=== PATIENT | male | born 1990 | race Two or more races ===

== ENCOUNTER 2016-09-30 17:25 | Emergency (ER) | payer SELFPAY ==
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
[2016-09-30 17:55] VITALS: BP 129/76
== END 2016-09-30 17:55 ==
LOC: ER 17:25
DX: S20.312A Abrasion of left front wall of thorax, initial encounter (principal); F10.120 Alcohol abuse with intoxication, uncomplicated; X08.8XXA Exposure to other specified smoke, fire and flames, initial encounter; Y93.89 Activity, other specified
CPT/HCPCS: 99284

== ENCOUNTER 2017-04-18 06:07 | Emergency (ER) | payer SELFPAY ==
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
[2017-04-18 07:22] LABS: ABSOLUTE EOSINOPHILS # (AUTO) 0.1 10^3/uL (0.0-0.6); ABSOLUTE LYMPHOCYTES (AUTO) 2.1 10^3/uL (0.5-4.7); ABSOLUTE MONOCYTES (AUTO) 1.1 10^3/uL (0.1-1.4); ABSOLUTE NEUT (AUTO) 10.1 10^3/uL (1.7-8.2); BASOPHILS % (AUTO) 0.3 % (0-2); EOSINOPHILS % (AUTO) 0.9 % (0-6); HEMATOCRIT 53.1 % (37.9-51.0); HEMOGLOBIN 17.8 g/dL (13.5-17.0); HGB HCT DIFFERENCE 0.3; LYMPHOCYTES % (AUTO) 15.9 % (13-45); MEAN CORPUSCULAR HGB CONC 33.6 g/dL (32.0-36.0); MEAN CORPUSCULAR VOLUME 95 fl (80-97); MONOCYTES % (AUTO) 7.8 % (3-13); RED BLOOD COUNT 5.58 10^6/uL (4.35-5.55); RED CELL DISTRIBUTION WIDTH 13.8 % (11.5-14.0); SEGMENTED NEUTROPHILS % (AUTO) 75.1 % (42-78); WHITE BLOOD COUNT 13.5 10^3/uL (4.0-10.5)
[2017-04-18 07:44] LABS: ALCOHOL 286 mg/dL (NONE DETECTED); ANION GAP 14 (5-19); BLOOD UREA NITROGEN 16 mg/dL (7-20); CALCIUM 8.6 mg/dL (8.4-10.2); CARBON DIOXIDE 25 mmol/L (22-30); CHLORIDE 108 mmol/L (98-107); CREATININE RESULT 0.99 mg/dL (0.52-1.25); GLUCOSE 93 mg/dL (75-110); POTASSIUM 4.3 mmol/L (3.6-5.0); SODIUM 146.9 mmol/L (137-145)
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
[2017-04-18 08:09] LABS: URINE BARBITURATES SCREEN NEGATIVE; URINE METHADONE SCREEN NEGATIVE; URINE OPIATES LOW NEGATIVE; URINE PHENCYCLIDINE SCREEN NEGATIVE
[2017-04-18 10:57] VITALS: BP 122/77
== END 2017-04-18 11:04 | disposition home or self-care (01) ==
LOC: ER 06:07
DX: S02.2XXA Fracture of nasal bones, initial encounter for closed fracture (principal); R52 Pain, unspecified; Y09 Assault by unspecified means; F10.120 Alcohol abuse with intoxication, uncomplicated
CPT/HCPCS: 36415; 51701; 70450; 70486; 71260; 72125; 74177; 80048; 80307; 85025; 99285

== ENCOUNTER 2017-05-19 17:34 | Emergency (ER) | payer SELFPAY ==
[2017-05-19] MEDS ORDERED: ACETAMINOPHEN 325 MG TABLET PO ONE (18:04)
[2017-05-19] MEDS ORDERED: SULFAMETHOXAZOLE/TRIMETHOPRIM 800-160 MG TABLET PO ONE (18:04)
--- NOTE | 2017-05-19 18:07 | ER Document Report ---
ED Skin Rash/Insect Bite/Abscs - General Chief Complaint: Possible abscesses Stated Complaint: POSSIBLE ABCESS Time Seen by Provider: 05/19/17 17:50 Mode of Arrival: Ambulatory Information source: Patient Notes: 26-year-old male presents to ED for "boils to the inner left thigh near the groin" over the past 2 months. States they have developed now into 3 or 4 little boils. "I think it is now infected and hurts". Girlfriend states is a change in the color to the area. TRAVEL OUTSIDE OF THE [place] IN LAST 30 DAYS: No - HPI Patient complains to provider of: Tender/swollen area Onset: Other - 2 months Onset/Duration: Gradual Quality of pain: Achy, Sharp Severity: Moderate Pain Level: 3 Skin Character: Abscess Quality of rash: Painful Identify cause: No Exacerbated by: Denies, Movement, Walking Relieved by: Denies Similar symptoms previously: Yes Recently seen / treated by doctor: No - Related Data Allergies/Adverse Reactions: No Known Allergies Allergy (Verified 06/23/16 10:02) Past Medical History - General Information source: Patient - Social History Smoking Status: Never Smoker Cigarette use (# per day): No Chew tobacco use (# tins/day): No Smoking Education Provided: No Frequency of alcohol use: Heavy Drug Abuse: None Occupation: consturction Lives with: Spouse/Significant other Family History: Reviewed & Not Pertinent, Arthritis, CAD, DM, Hyperlipidemia, Hypertension, Malignancy Patient has suicidal ideation: No Patient has homicidal ideation: No - Past Medical History Cardiac Medical History: Reports: None Pulmonary Medical History: Reports: Hx Asthma EENT Medical History: Reports: None Neurological Medical History: Reports: None Endocrine Medical History: Reports: None Renal/ Medical History: Reports: None Malignancy Medical History: Reports None GI Medical History: Reports: None Musculoskeltal Medical History: Reports Hx Musculoskeletal Trauma Skin Medical History: Reports Hx Cellulitis Psychiatric Medical History: Reports: Hx Attention Deficit Hyperactivity Disorder Traumatic Medical History: Reports: None Infectious Medical History: Reports: None Surgical Hx: Negative Past Surgical History: Reports: None - Immunizations Immunizations up to date: No Hx Diphtheria, Pertussis, Tetanus Vaccination: Yes Review of Systems - Review of Systems Constitutional: No symptoms reported EENT: No symptoms reported Cardiovascular: No symptoms reported Respiratory: No symptoms reported Gastrointestinal: No symptoms reported Genitourinary: No symptoms reported Male Genitourinary: No symptoms reported Musculoskeletal: No symptoms reported Skin: Lesions Hematologic/Lymphatic: No symptoms reported Neurological/Psychological: No symptoms reported Physical Exam - Vital signs Vitals: Temp Pulse Resp BP Pulse Ox 98.6 F 63 16 128/77 H 98 05/19/17 17:42 05/19/17 17:42 05/19/17 17:42 05/19/17 17:42 05/19/17 17:42 Interpretation: Normal - General General appearance: Appears well, Alert - HEENT Head: Normocephalic, Atraumatic Eyes: Normal Pupils: PERRL - Respiratory Respiratory status: No respiratory distress Chest status: Nontender Breath sounds: Normal Chest palpation: Normal - Cardiovascular Rhythm: Regular Heart sounds: Normal auscultation Murmur: No - Abdominal Inspection: Normal Distension: No distension Bowel sounds: Normal Tenderness: Nontender Organomegaly: No organomegaly - Back Back: Normal, Nontender - Extremities General upper extremity: Normal inspection, Nontender, Normal color, Normal ROM , Normal temperature General lower extremity: Normal inspection, Nontender, Normal color, Normal ROM , Normal temperature, Normal weight bearing. No: Rosalva's sign - Neurological Neuro grossly intact: Yes Cognition: Normal Orientation: AAOx4 Nabil Coma Scale Eye Opening: Spontaneous Nabil Coma Scale Verbal: Oriented Nabil Coma Scale Motor: Obeys Commands Wallace Coma Scale Total: 15 Speech: Normal Motor strength normal: LUE, RUE, LLE, RLE Sensory: Normal - Psychological Associated symptoms: Normal affect, Normal mood - Skin Skin Temperature: Warm Skin Moisture: Dry Skin Color: Normal Skin irregularity: Abscess - Do not need to be I&D. Significant other states that she pulled a hair out of one yesterday and it drained. States she is using Bactroban on the area. Site looks like it will heal with some antibiotics. Location of irregularity: Extremities - Left thigh Character of irregularity: Maculopapular, Erythematous Irregularity with: Tenderness, Weeping Course - Re-evaluation Re-evalutation: 05/19/17 18:08 Patient is already treating with warm soaks and Bactroban will add Septra to the treatment and have instructed patient to soak in a tub with Epsom salt at least once a day. 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 Instructed patient to buy some diaper wipes or bath wipes of some sort to clean himself during the day to decrease the risk of return of the abscesses. - Vital Signs Vital signs: Temp Pulse Resp BP Pulse Ox 98.5 F 73 18 117/66 97 05/19/17 18:29 05/19/17 18:29 05/19/17 18:29 05/19/17 18:29 05/19/17 18:29 Discharge - Discharge Clinical Impression: Abscess of left thigh Condition: Stable Disposition: HOME, SELF-CARE Instructions: Family Physicians / Practices, Ibuprofen (General) ([facility]) Additional Instructions: ABSCESS: You have an abscess to the left inner thigh. This abscess does not need to be opened. He will need to continue to clean area as instructed soak in the past with absent salt as instructed, and continued to use the Bactroban you have been using on the area. I will also start her on some Septra which will help to finish healing up this area. Please return to the ED for any increase in symptoms increase in pain or increase in swelling. TRIMETHOPRIM-SULFA: You have been given a prescription for trimethoprim-sulfa (TMS, Septra, Bactrim). This is a combination antibiotic of the sulfa class, often used for urinary tract infections, middle ear infections, bronchitis, shigella intestinal infection, and Pneumocystis pneumonia. TMS is usually well-tolerated. Occasional side effects include nausea and decreased appetite. Septra is not recommended for infants less than two months of age. Do not take this medication if you have experienced severe side effects or allergy to sulfa medicine. You should stop this medicine at once and contact your physician if you develop any rash, joint pain, shortness of breath, bruising, or jaundice ( yellow color in the skin), or if you develop any other new or unusual symptoms. Acetaminophen Acetaminophen may be taken for pain relief or fever control. It's much safer than aspirin, offering a wider range of "safe" dosages. It is safe during . Some brand names are Tylenol, Panadol, Datril, Anacin 3, Tempra, and Liquiprin. Acetaminophen can be repeated every four hours. The following are maximum recommended dosages: WEIGHT Dose Drops Elixir Chewable( 80mg) (LBS.) drprs=droppers tsp=teaspoon 6 40 mg .4 ml (1/2) 6-11 80 mg .8 ml (full) 1/2 tsp 1 tab 12-16 120 mg 1 1/2 drprs 3/4 tsp 1 1/2 tabs 17-23 160 mg 2 drprs 1 tsp 2 tabs 24-30 240 mg 3 drprs 1 1/2 tsp 3 tabs 30-35 320 mg 2 tsp 4 tabs 36-41 360 mg 2 1/4 tsp 4 1 /2 tabs 42-47 400 mg 2 1/2 tsp 5 tabs 48-53 480 mg 3 tsp 6 tabs 54-59 520 mg 3 1/4 tsp 6 1 /2 tabs 60-64 560 mg 3 1/2 tsp 7 tabs 65-70 600 mg 3 3/4 tsp 7 1 /2 tabs 71-76 640 mg 4 tsp 8 tabs 77-82 720 mg 4 1/2 tsp 9 tabs 83-88 800 mg 5 tsp 10 tabs >89 pounds or adults 650 mg to 900 mg Acetaminophen can be repeated every four hours. Maximum daily dose not to exceed 4000 mg. These maximum recommended dosages are slightly higher than the dosages written on the product container, but these dosages are very safe and well below the toxic dosage for acetaminophen. FOLLOW-UP CARE: If you have been referred to a physician for follow-up care, call the physician s office for an appointment as you were instructed or within the next two days. If you experience worsening or a significant change in your symptoms, notify the physician immediately or return to the Emergency Department at any time for re-evaluation. Prescriptions: Sulfamethoxazole/Trimethoprim [Septra-Ds 800-160 mg Tablet] 1 tab PO BID #20 tablet Forms: Elevated Blood Pressure
[2017-05-19 18:34] VITALS: BP 117/66
== END 2017-05-19 18:34 | disposition home or self-care (01) ==
LOC: ER 17:34
DX: L02.416 Cutaneous abscess of left lower limb (principal)
CPT/HCPCS: 99282

== ENCOUNTER 2018-08-06 13:37 | Emergency (ER) | payer OTHER ==
[2018-08-06] MEDS ORDERED: OXYCODONE-ACETAMINOPHEN 5-325 MG TABLET PO ONE (14:23)
[2018-08-06] MEDS ORDERED: CYCLOBENZAPRINE HCL 10 MG TABLET PO ONE (14:23)
[2018-08-06] MEDS ORDERED: IBUPROFEN 800 MG TABLET PO ONE (14:23)
--- NOTE | 2018-08-06 14:26 | ER Document Report ---
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 He reports trying to cigar packer and picker a 5 gallon bucket of mortar /mud. He reports picking it up and they are trying to set it up on a machine, and felt something pull in his anterior chest and upper back. This occurred about 830 this morning. Pain at getting worse and worse. He reports trying to cigar packer and picker an 80 pound bag of [place] cement and the bag slipped out of his hands due to the pain. He brought came here out of concern about possibly dropping his 7-month-old child whom he likes to cigar packer and picker and play with at home. I have greeted and performed a rapid initial assessment of this patient. A comprehensive ED assessment and evaluation of the patient, analysis of test results and completion of the medical decision making process will be conducted by additional ED providers. TRAVEL OUTSIDE OF THE [place] IN LAST 30 DAYS: No - Related Data Allergies/Adverse Reactions: No Known Allergies Allergy (Verified 06/23/16 10:02) Past Medical History - Social History Chew tobacco use (# tins/day): No Drug Abuse: None Pulmonary Medical History: Reports: Hx Asthma Renal/ Medical History: Denies: Hx Peritoneal Dialysis Musculoskeltal Medical History: Reports Hx Musculoskeletal Trauma Skin Medical History: Reports Hx Cellulitis Psychiatric Medical History: Reports: Hx Attention Deficit Hyperactivity Disorder - Immunizations Immunizations up to date: No Hx Diphtheria, Pertussis, Tetanus Vaccination: Yes Physical Exam - Vital signs Vitals: Temp Pulse Resp BP Pulse Ox 98.7 F 87 20 143/94 H 99 08/06/18 13:41 08/06/18 13:41 08/06/18 13:41 08/06/18 13:41 08/06/18 13:41 Course - Vital Signs Vital signs: Temp Pulse Resp BP Pulse Ox 98.7 F 87 20 143/94 H 99 08/06/18 13:41 08/06/18 13:41 08/06/18 13:41 08/06/18 13:41 08/06/18 13:41
[2018-08-06] MEDS ORDERED: HYDROMORPHONE HCL INJ/PF 2 MG/ML AMPULE IM ONE (15:09)
--- NOTE | 2018-08-06 15:11 | ER Document Report ---
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 He reports trying to picking machine operator helper a 5 gallon bucket of mortar /mud. He reports picking it up and they are trying to set it up on a machine, and felt something pull in his anterior chest and upper back. This occurred about 830 this morning. He reports trying to picking machine operator helper an 80 pound bag of [place] cement and the bag slipped out of his hands due to the pain. Patient reports throbbing aching pain that is worse with movement. He came to the emergency department because his girlfriend told him that he would not be allowed to hold his premature daughter unless he was evaluated. TRAVEL OUTSIDE OF THE [place] IN LAST 30 DAYS: No - HPI Onset: This morning Onset/Duration: Gradual, Persistent, Worse Quality of pain: Achy, Throbbing Severity: Moderate Associated symptoms: Body/muscle aches, Chest pain. denies: Nonproductive cough , Productive cough, Fever, Nausea, Vomiting, Shortness of breath Exacerbated by: Movement Relieved by: Remaining still Similar symptoms previously: No Recently seen / treated by doctor: No - Related Data Allergies/Adverse Reactions: No Known Allergies Allergy (Verified 06/23/16 10:02) Past Medical History - General Information source: Patient, [facility] Records - Social History Smoking Status: Current Every Day Smoker Cigarette use (# per day): Yes - 10 Chew tobacco use (# tins/day): No Smoking Education Provided: Yes - Smoking cessation counseling was provided for 4 minutes at the bedside Frequency of alcohol use: None Drug Abuse: None Lives with: Spouse/Significant other Family History: Reviewed & Not Pertinent, Arthritis, CAD, DM, Hyperlipidemia, Hypertension, Malignancy Patient has suicidal ideation: No Patient has homicidal ideation: No Pulmonary Medical History: Reports: Hx Asthma Renal/ Medical History: Denies: Hx Peritoneal Dialysis Musculoskeletal Medical History: Reports Hx Musculoskeletal Trauma Skin Medical History: Reports Hx Cellulitis Psychiatric Medical History: Reports: Hx Attention Deficit Hyperactivity Disorder - Immunizations Immunizations up to date: No Hx Diphtheria, Pertussis, Tetanus Vaccination: Yes Review of Systems - Review of Systems Notes: REVIEW OF SYSTEMS: CONSTITUTIONAL : Denies fever, chills, or sweats. Denies recent illness. Denies weight loss, recent hospitalizations. EENT: Denies visual changes, eye pain. Denies sore throat, oral lesions, difficulty swallowing. CARDIOVASCULAR: Denies palpitations. Denies lower extremity edema. RESPIRATORY: Denies cough. Denies shortness of breath, wheezing. GASTROINTESTINAL: Denies abdominal pain or distention. Denies nausea, vomiting , or diarrhea. Denies blood in vomitus, stools, or per rectum. Denies black, tarry stools. Denies constipation. GENITOURINARY: Denies difficulty urinating, painful urination, frequency, blood in urine, testicular pain or penile discharge. MUSCULOSKELETAL: Denies neck pain or stiffness. Denies joint pain or swelling. SKIN: Denies rash, lesions or sores. HEMATOLOGIC : Denies easy bruising or bleeding. LYMPHATIC: Denies swollen glands. NEUROLOGICAL: Denies confusion or altered mental status. Denies loss of consciousness. Denies dizziness or lightheadedness. Denies headache. Denies weakness or paralysis. Denies problems difficulty with ambulation, slurred speech. Denies sensory loss, numbness, or tingling. Denies seizures. PSYCHIATRIC: Denies anxiety or stress. Denies depression, suicidal ideation, or Physical Exam - Vital signs Vitals: Temp Pulse Resp BP Pulse Ox 98.7 F 87 20 143/94 H 99 08/06/18 13:41 08/06/18 13:41 08/06/18 13:41 08/06/18 13:41 08/06/18 13:41 - Notes Notes: PHYSICAL EXAMINATION: GENERAL: Well-appearing, well-nourished and in no acute distress. HEAD: Atraumatic, normocephalic. EYES: Pupils equal round and reactive to light, extraocular movements intact, sclera anicteric, conjunctiva are normal. ENT: Nares patent, oropharynx clear without exudates. Moist mucous membranes. NECK: Normal range of motion, supple without lymphadenopathy LUNGS: Breath sounds clear to auscultation bilaterally and equal. No wheezes rales or rhonchi. Anterior chest wall tenderness with palpation. HEART: Regular rate and rhythm without murmurs ABDOMEN: Soft, nontender, nondistended abdomen. No guarding, no rebound. No masses appreciated. Musculoskeletal: Normal range of motion, no pitting or edema. No cyanosis. Diffuse tenderness of the paraspinal musculature of the thoracic spine. No midline tenderness. NEUROLOGICAL: Cranial nerves grossly intact. Normal speech, normal gait. Normal sensory, motor exams PSYCH: Normal mood, normal affect. SKIN: Warm, Dry, normal turgor, no rashes or lesions noted. Course - Re-evaluation Re-evalutation: Thoracic Spine X-Ray 08/06/18 15:09 IMPRESSION: Dorsal scoliosis convex left. Otherwise ,normal dorsal spine. 08/06/18 19:50 27-year-old male presents with complaint of upper back pain and chest pain that started this morning after lifting a heavy bucket of mud while at work. Patient states that he tried to continue working but was unable to continuously lift these pockets secondary to pain. Pain is described as throbbing, aching and worse with movement. Denies prior similar symptoms. Vital signs reviewed upon arrival. Patient is mildly hypertensive but afebrile not hypoxic. EKG was reviewed and showed normal sinus rhythm. Exam is significant for paraspinal tenderness of the thoracic spine and tenderness to the anterior chest wall. Patient did receive IM Dilaudid, Motrin, Flexeril during his ED course. On reevaluation patient states that he is feeling much better. Patient was discharged home with instructions to stretch, ice and use some Motrin consistently every 6 hours for the next 2 days. Patient was evaluated and treated as appropriate for the patient's presenting symptoms and complaint, with consideration of any critical or life threatening conditions that may be associated with their obtained history and exam as noted above. All results were discussed with patient. Patient provided the opportunity to ask questions , and express concerns. Patient was educated on treatments based on their presumed diagnosis as noted above. At this time we will discharge the patient with return precautions and follow-up recommendations. Verbal discharge instructions given a the bedside. Medication warnings reviewed. Patient is in agreement with this plan and has verbalized understanding of return precautions. After careful consideration I feel that that patient can be safely discharged from the emergency department, they were advised to followup with a primary care physician in 2-3 days. Dictation on this chart was performed using voice recognition software and may result in unintended grammatical, spelling, syntax or errors. 08/06/18 19:52 08/06/18 19:53 - Vital Signs Vital signs: Temp Pulse Resp BP Pulse Ox 97.6 F 64 18 122/80 100 08/06/18 17:44 08/06/18 17:44 08/06/18 17:44 08/06/18 17:44 08/06/18 17:44 - Diagnostic Test Radiology reviewed: Image reviewed, Reports reviewed - EKG Interpretation by Me EKG shows normal: Sinus rhythm Rate: Normal Rhythm: NSR When compared to previous EKG there are: Previous EKG unavailable Discharge - Discharge Clinical Impression: Elevated blood pressure reading, Chest wall pain Strain of thoracic region Qualifiers: Encounter type: initial encounter Qualified Code(s): S29.019A - Strain of muscle and tendon of unspecified wall of thorax, initial encounter Condition: Good Disposition: HOME, SELF-CARE Instructions: Anti-Inflammatory Medication ([facility]), Chest Wall Pain ([facility]), Upper Back Strain ([facility]) Additional Instructions: Follow up with your [id number] hours for further care or return to the ED IMMEDIATELY if symptoms worsen or you have any concerns. If you cannot afford to follow up with your primary care physician a list of low cost clinics have been provided at the end of your discharge papers as well. Most prescribed medications have multiple side effects. The safest thing to do is when filling your prescription speak to your pharmacist regarding possible interactions with your normal home medications and over the counter medications such as Ibuprofen, Tylenol, Benadryl. If you experience any symptoms that cause you discomfort or concern you should discontinue the medication immediately and return to the emergency room or call your primary care physician. Prescriptions: Cyclobenzaprine HCl [Flexeril 10 mg Tablet] 10 mg PO TIDP PRN #15 tab PRN Reason: Ibuprofen [Motrin 600 Mg Tablet] 600 mg PO TID #15 tablet Forms: Return to Work
--- NOTE | 2018-08-06 15:29 | RADIOLOGY REPORT (SQ) ---
EXAM DESCRIPTION: T SPINE AP/LAT COMPLETED DATE/TIME: 08/06/2018 3:18 pm REASON FOR STUDY: pain COMPARISON: None. NUMBER OF VIEWS: Two views. TECHNIQUE: AP and lateral radiographic images acquired of the thoracic spine. LIMITATIONS: None. FINDINGS: MINERALIZATION: Normal. ALIGNMENT: There is dorsal scoliosis convex left. VERTEBRAE: 12 rib-bearing dorsal vertebra. DISCS: No significant loss of height or significant narrowing. No large osteophytes. HARDWARE: None in the spine. MEDIASTINUM AND SOFT TISSUES: Normal heart size and aortic contour. No soft tissue abnormality. VISUALIZED LUNG HOLT: Clear. OTHER: No other significant finding. IMPRESSION: Dorsal scoliosis convex left. Otherwise ,normal dorsal spine. TECHNICAL DOCUMENTATION: JOB ID: [id number] [id number] 2010 [employer]- All Rights Reserved Reading location - IP/workstation name: [email or web address]
[2018-08-06 17:45] VITALS: BP 122/80
--- NOTE | 2018-08-06 19:16 | EKG REPORT ---
SEVERITY:- ABNORMAL ECG - SINUS RHYTHM SHORT GA INTERVAL, ACCELERATED AV CONDUCTION PROBABLE LEFT VENTRICULAR HYPERTROPHY : Confirmed by: Anayeli Cuadra MD 06-Aug-2018 19:15:24
--- NOTE | 2018-08-06 19:16 | EKG REPORT ---
SEVERITY:- ABNORMAL ECG - SINUS RHYTHM PROBABLE LEFT VENTRICULAR HYPERTROPHY : Confirmed by: Anayeli Cuadra MD 06-Aug-2018 19:15:21
== END 2018-08-06 17:45 | disposition home or self-care (01) ==
LOC: ER 13:37
DX: S29.019A Strain of muscle and tendon of unspecified wall of thorax, initial encounter (principal); R03.0 Elevated blood-pressure reading, without diagnosis of hypertension; R07.89 Other chest pain; X50.0XXA Overexertion from strenuous movement or load, initial encounter; M79.10 Myalgia, unspecified site; F17.210 Nicotine dependence, cigarettes, uncomplicated; J45.909 Unspecified asthma, uncomplicated
CPT/HCPCS: 93005; 99406; 99285; 96372; 72070; 93010; J1170

== ENCOUNTER 2018-12-15 17:21 | Emergency (ER) | payer SELFPAY ==
[2018-12-15 17:26] VITALS: BP 142/69
[2018-12-15] MEDS ORDERED: LIDOCAINE 1% INJ-PF (10 MG/ML) 30 ML SDV INJ ONE (17:32)
[2018-12-15] MEDS ORDERED: DIPH/PERTUSS(ACELL)/TETANUS VAC/PF 0.5 ML SYR (>=10YO) IM ONE (17:42)
--- NOTE | 2018-12-15 17:42 | ER Document Report ---
ED Hand/Wrist Injury - General Chief Complaint: Hand Injury Stated Complaint: LEFT HAND INJURY Time Seen by Provider: 12/15/18 17:32 Primary Care Provider: [facility] ([facility] [Provider Group] - Follow up as needed Mode of Arrival: Ambulatory Information source: Patient Notes: 28-year-old male presents to ED for complaint of pain to his left hand. He sta ar he jammed his left hand into the end of 18 buckley yesterday because of pain and swelling to the arm. There is a small laceration to the left fifth finger. There is swelling to the left fifth finger and metacarpal. Patient is alert oriented respirations regular and unlabored speaking in full sentences walks with a even steady gait. TRAVEL OUTSIDE OF THE [place] IN LAST 30 DAYS: No - HPI Injury to: Hand, Small finger Onset: Yesterday Where: Outdoors, Public place Quality of pain: Achy, Sharp, Throbbing Severity: Moderate Pain Level: 4 Context: Other - Jammed his hand into the trailer of an 18 buckley - Related Data Allergies/Adverse Reactions: No Known Allergies Allergy (Verified 12/15/18 17:23) Past Medical History - General Information source: Patient - Social History Smoking Status: Current Every Day Smoker Cigarette use (# per day): Yes - 2 packs/day Chew tobacco use (# tins/day): No Smoking Education Provided: Yes - 4 minutes Frequency of alcohol use: None - Recovering alcoholic Drug Abuse: None - Recovering Occupation: Services Rep Lives with: Spouse/Significant other Family History: Reviewed & Not Pertinent, Arthritis, CAD, DM, Hyperlipidemia, Hypertension, Malignancy Patient has suicidal ideation: No Patient has homicidal ideation: No - Past Medical History Cardiac Medical History: Reports: None Pulmonary Medical History: Reports: Hx Asthma EENT Medical History: Reports: None Neurological Medical History: Reports: None Endocrine Medical History: Reports: None Renal/ Medical History: Reports: None Malignancy Medical History: Reports None GI Medical History: Reports: Hx Diverticulitis Musculoskeletal Medical History: Reports Hx Musculoskeletal Trauma Skin Medical History: Reports Hx Cellulitis Psychiatric Medical History: Reports: Hx Attention Deficit Hyperactivity Disorder Traumatic Medical History: Reports: None Infectious Medical History: Reports: None Surgical Hx: Negative Past Surgical History: Reports: None - Immunizations Immunizations up to date: Yes Hx Diphtheria, Pertussis, Tetanus Vaccination: Yes - 12/15/2018 Review of Systems - Review of Systems Constitutional: No symptoms reported EENT: No symptoms reported Cardiovascular: No symptoms reported Respiratory: No symptoms reported Gastrointestinal: No symptoms reported Genitourinary: No symptoms reported Male Genitourinary: No symptoms reported Musculoskeletal: Other - Swelling and small laceration to the left fifth finger and hand Skin: No symptoms reported Hematologic/Lymphatic: No symptoms reported Neurological/Psychological: No symptoms reported -: Yes All other systems reviewed and negative Physical Exam - Vital signs Vitals: Temp Pulse Resp BP Pulse Ox 98.2 F 73 18 142/69 H 98 12/15/18 17:26 12/15/18 17:26 12/15/18 17:26 12/15/18 17:26 12/15/18 17:26 Interpretation: Normal - General General appearance: Appears well, Alert - HEENT Head: Normocephalic, Atraumatic Eyes: Normal Pupils: PERRL - Respiratory Respiratory status: No respiratory distress Chest status: Nontender Breath sounds: Normal Chest palpation: Normal - Cardiovascular Rhythm: Regular Heart sounds: Normal auscultation Murmur: No - Abdominal Inspection: Normal Distension: No distension Bowel sounds: Normal Tenderness: Nontender Organomegaly: No organomegaly - Back Back: Normal, Nontender - Extremities General upper extremity: Normal color, Normal temperature General lower extremity: Normal inspection, Nontender, Normal color, Normal ROM, Normal temperature, Normal weight bearing. No: Rosalva's sign Hand: Tender, Ecchymosis, Laceration - 1/2 cm left fifth finger, No evidence of human bite, No evidence of FB, Swelling. No: Abrasion, Deformity, Dislocation, Tendon deficit - Neurological Neuro grossly intact: Yes Cognition: Normal Orientation: AAOx4 Nabil Coma Scale Eye Opening: Spontaneous [place] Coma Scale Verbal: Oriented [place]abil Coma Scale Motor: Obeys Commands [place] Coma Scale Total: 15 Speech: Normal Motor strength normal: LUE, RUE, LLE, RLE Sensory: Normal - Psychological Associated symptoms: Normal affect, Normal mood - Skin Skin Temperature: Warm Skin Moisture: Dry Skin Color: Normal Course - Re-evaluation Re-evalutation: 12/15/18 20:50 X-ray discussed with patient and written report of x-ray given to patient. Patient was instructed to follow-up with orthopedics in the next 3-5 days. Patient was given list of [facility] for surgery to follow-up. He was also given a list of primary doctors to follow-up with. Patient was given a Malone in the emergency room and discharged home with instructions for elevation ice ibuprofen. - Vital Signs Vital signs: Temp Pulse Resp BP Pulse Ox 98.2 F 73 18 142/69 H 98 12/15/18 17:26 12/15/18 17:26 12/15/18 17:26 12/15/18 17:26 12/15/18 17:26 - Diagnostic Test Radiology reviewed: Image reviewed, Reports reviewed Procedures - Immobilization Left Finger 5th digit Time completed: 18:44 Pre-Proc Neuro Vasc Exam: Normal Immobilizer type: Finger splint (Static) Performed by: PCT Post-Proc Neuro Vasc Exam: Normal Alignment checked and good: Yes Discharge - Discharge Clinical Impression: fracture 5th finger left first visit Condition: Stable Disposition: HOME, SELF-CARE Additional Instructions: Fractured Finger There is a fracture in your finger. The bone is straight and in good position to heal. The doctor has assessed the seriousness of the fracture and has explained your treatment plan. Usually the finger will be splinted until fracture healing is complete. This is usually about three or four weeks. At that time, the injured finger may be taped to the next finger to provide a moving splint for longer protection. The first few days after the injury, the finger should be kept elevated and cold (with ice packs). This decreases the swelling and pain. You should contact the doctor or return at once if pain or swelling become severe, or if the finger becomes numb. Some degree of bruising is normal with a finger fracture. Tetanus Immunization Given You have been given an immunization against tetanus. Please record this in your records. In general, a booster is needed only once every 10 years. The tetanus shot protects against tetanus or "lockjaw," which is a complication of certain wound infections (the tetanus shot cannot protect against the actual infection). The immunization site may become warm and red due to local reaction. If this occurs, apply warm compresses and take aspirin or ibuprofen to reduce inflammation and discomfort. Return for evaluation if the reaction becomes severe. SPLINT PRECAUTIONS: A splint has been placed. This will protect the area while healing begins. Your problem does NOT normally require a cast. It MUST, however, be held still! Keep the splint on ALL THE TIME until instructed to remove it by the doctor. As you begin to use the area, be careful. You shouldn't do anything which causes discomfort -- you may disturb the injury even with the splint in place. After the initial period of rest and elevation, if splint does not prevent pain when you move, come back. You may require placement of a different splint, or a cast. If there is unexpected severe pain, or numbness, discoloration, or swelling beyond the splint, you should return at once. If you feel that the splint has broken or become loose, come back. ICE & ELEVATION: Apply ice packs frequently against the painful area. Many different schedules are recommended, such as "20 minutes on, 20 minutes off" or "one hour ice, two hours rest." If you need to work, you may need to go longer between ice treatments. You should plan to have the area ice packed AT LEAST one-fourth of the time. The ice should be applied over the wrap, tape, or splint, or over a layer of cloth -- not directly against the skin. Some ice bags have a built-in cloth and can be put directly on the skin. Your injured part should be elevated as much as possible over the next 48 hours. Try to keep the injury above the level of the heart. Avoid use of the injured area. Elevation and rest will decrease the swelling. USE OF [id number] IBUPROFEN: Ibuprofen (Advil, Nuprin, Medipren, Motrin IB) is a medication for fever and pain control. In addition, it has anti- inflammatory effects which may be beneficial, especially in the treatment of injuries. It's best to take ibuprofen with food. Persons with ulcer disease or allergy to aspirin should notify their physician of this before taking ibuprofen. Ibuprofen can be given every four to six hours, for a total of four doses daily. Age Pain or fever dose Antiinflammatory dose 6-8 yr 200 mg (1 tab) 200 mg (1 tab) 9-11 yr 200 mg (1 tab) 200-400 mg (1-2 tab) 11-14 yr 200-400 mg (1-2 tab) 400 mg (2 tab) 15-adult 400 mg (2 tab) 600 mg (3 tab) FOLLOW-UP CARE: If you have been referred to a physician for follow-up care, call the physicians office for an appointment as you were instructed or within the next two days. If you experience worsening or a significant change in your symptoms, notify the physician immediately or return to the Emergency Department at any time for re-evaluation. Forms: Elevated Blood Pressure, Smoking Cessation Education, Return to Work Referrals: [facility] ([facility]) [Provider Group] - Follow up as needed
--- NOTE | 2018-12-15 18:11 | RADIOLOGY REPORT (SQ) ---
EXAM DESCRIPTION: HAND LEFT 3 VIEWS COMPLETED DATE/TIME: 12/15/2018 5:55 pm REASON FOR STUDY: pain injury swelling COMPARISON: None. EXAM PARAMETERS: NUMBER OF VIEWS: Three views. TECHNIQUE: AP, lateral and oblique radiographic images acquired of the left hand. LIMITATIONS: None. FINDINGS: MINERALIZATION: Normal. BONES: Nondisplaced transverse fracture of the proximal phalanx of the 5th finger. JOINTS: No effusions. SOFT TISSUES: No soft tissue swelling. No foreign body. OTHER: No other significant finding. IMPRESSION: NONDISPLACED TRANSVERSE FRACTURE OF THE PROXIMAL PHALANX OF THE LEFT FINGER. TECHNICAL DOCUMENTATION: JOB ID: [id number] [employer]- All Rights Reserved Reading location - IP/workstation name: [email or web address]
[2018-12-15] MEDS ORDERED: IBUPROFEN 800 MG TABLET PO ONE (18:40)
[2018-12-15] MEDS ORDERED: HYDROCODONE/ACETAMINOPHEN 5-325 MG TABLET PO ONE (18:58)
== END 2018-12-15 19:02 | disposition home or self-care (01) ==
LOC: ER 17:21
DX: S62.647A Nondisplaced fracture of proximal phalanx of left little finger, initial encounter for closed fracture (principal); S61.217A Laceration without foreign body of left little finger without damage to nail, initial encounter; M79.642 Pain in left hand; W22.8XXA Striking against or struck by other objects, initial encounter; F17.210 Nicotine dependence, cigarettes, uncomplicated; Z71.6 Tobacco abuse counseling; J45.909 Unspecified asthma, uncomplicated
CPT/HCPCS: 90715; 99283; 99406

== ENCOUNTER 2018-12-18 20:47 | Emergency (ER) | payer SELFPAY ==
[2018-12-18] MEDS ORDERED: HYDROCODONE/ACETAMINOPHEN 5-325 MG TABLET PO ONE (22:59)
--- NOTE | 2018-12-18 23:11 | ER Document Report ---
ED Hand/Wrist Injury - General Chief Complaint: Hand Pain Stated Complaint: LEFT PINKY PAIN Time Seen by Provider: 12/18/18 22:33 Mode of Arrival: Ambulatory Information source: Patient TRAVEL OUTSIDE OF THE [place] IN LAST 30 DAYS: No - HPI Patient complains to provider of: Left 5th finger pain Notes: Patient is here with complaints of pain to the left fifth finger. Patient was seen here 3 days ago after he hit his finger on the back of an 18 buckley. He was noted to have a fracture of the left fifth finger. He was placed in an AlumaFoam splint and was discharged home. He followed up with orthopedic surgery yesterday and had a repeat x-ray which looked well. He continues to have pain, he feels like his finger is moving too much in the splint that he is in. He complains of some tingling to all of his fingers. He denies fever. He denies nausea, vomiting, diarrhea. He denies any chest pain or shortness of breath. States the pain is constant, moderate, worse with any sort of movement, better with rest. States that he is been taking Tylenol and ibuprofen without significant relief of his pain. He denies any other specific complaints at this time. - Related Data Allergies/Adverse Reactions: No Known Allergies Allergy (Verified 12/15/18 17:23) Past Medical History - Social History Smoking Status: Current Every Day Smoker Chew tobacco use (# tins/day): No Drug Abuse: None Family History: Reviewed & Not Pertinent, Arthritis, CAD, DM, Hyperlipidemia, Hypertension, Malignancy Patient has suicidal ideation: No Patient has homicidal ideation: No Pulmonary Medical History: Reports: Hx Asthma Renal/ Medical History: Denies: Hx Peritoneal Dialysis GI Medical History: Reports: Hx Diverticulitis Musculoskeletal Medical History: Reports Hx Musculoskeletal Trauma Skin Medical History: Reports Hx Cellulitis Psychiatric Medical History: Reports: Hx Attention Deficit Hyperactivity Disorder - Immunizations Immunizations up to date: Yes Hx Diphtheria, Pertussis, Tetanus Vaccination: Yes - 12/15/2018 Review of Systems - Review of Systems -: Yes All other systems reviewed and negative Physical Exam - Vital signs Vitals: Temp Pulse Resp BP Pulse Ox 98.3 F 89 16 133/77 H 98 12/18/18 21:06 12/18/18 21:06 12/18/18 21:06 12/18/18 21:06 12/18/18 21:06 - Notes Notes: GENERAL: alert, cooperative, nontoxic, no distress. HEAD: normocephalic, atraumatic EYES: conjunctiva pink without discharge, no external redness or swelling. EARS: no external swelling, no external redness NOSE: atraumatic, no external swelling MOUTH/THROAT: mucous membranes moist and pink NECK: soft, supple, full range of motion, no meningismus. CHEST: no distress, lungs clear and equal throughout. No wheezing, rales, rhonchi. CARDIAC: regular rate and rhythm, no murmur, normal capillary refill, normal pulses. BACK: full range of motion, no CVA tenderness. EXTREMITIES: Limited range of motion of the left fifth finger, otherwise full range of motion of all extremities. No redness, no swelling. Tenderness to palpation of the left fifth finger. Healed laceration with no redness or signs of infection. Normal cap refill. Normal pulse. Compartments are soft. NEURO: alert and oriented 3, no focal deficits, full range of motion of all extremities. PYSCH: appropriate mood, affect. Patient is cooperative. SKIN: pink, warm, dry, no rash. Course - Re-evaluation Re-evalutation: 12/18/18 23:07 Patient is here with complaints of increasing pain to the left fifth finger. He was seen here 3 days ago and diagnosed with a finger fracture. He was followed up by orthopedic surgery yesterday. He was wearing an AlumaFoam splint, but states that he feels like the splint is not mobilizing his finger enough. He states that he has been moving his finger unintentionally, and this is causing increased pain. On exam finger is not red, swollen. Normal cap refill. Normal sensation. Normal radial pulse. Since the patient feels like his AlumaFoam splint was not mobilizing his finger well enough, I have had them place him in an ulnar gutter which will certainly immobilize the finger further. This point the patient will be discharged home with small supply of Rutledge with instructions to follow back up with his orthopedic surgeon as scheduled next week. Follow-up sooner for worsening pain, fever, weakness, redness, any further concerns. 12/18/18 23:11 The patient's emergency department workup and current diagnosis were explained to the patient and or family. Follow-up instructions were provided. Medications if prescribed were discussed. Instructions for when to return to the emergency department including specific worrisome symptoms were discussed with the patient and/or family. - Vital Signs Vital signs: Temp Pulse Resp BP Pulse Ox 98.3 F 89 16 133/77 H 98 12/18/18 21:06 12/18/18 21:06 12/18/18 21:06 12/18/18 21:06 12/18/18 21:06 Procedures - Immobilization Left hand Pre-Proc Neuro Vasc Exam: Normal Immobilizer type: Ulnar Performed by: PCT Post-Proc Neuro Vasc Exam: Normal, Unchanged from pre-exam Alignment checked and good: Yes Discharge - Discharge Clinical Impression: Finger fracture, left Condition: Stable Disposition: HOME, SELF-CARE Instructions: Fractured Finger ([facility]), Splint Precautions ([facility]) Additional Instructions: Wear splint until you follow-up with orthopedics. Rest, ice, elevate. Take medications as prescribed. You may also take ibuprofen as needed for pain. Follow-up sooner for any worsening pain, fevers, redness, any further concerns. Prescriptions: Hydrocodone/Acetaminophen [Rutledge 5-325 mg Tablet] 2 tab PO Q6H PRN #10 tab PRN Reason: Forms: Elevated Blood Pressure, Smoking Cessation Education Referrals: [facility] [Provider Group] - Follow up as needed
[2018-12-18 23:13] VITALS: BP 129/84
== END 2018-12-18 23:45 | disposition home or self-care (01) ==
LOC: ER 20:47
DX: S62.607A Fracture of unspecified phalanx of left little finger, initial encounter for closed fracture (principal); M79.642 Pain in left hand; W22.09XA Striking against other stationary object, initial encounter; F17.200 Nicotine dependence, unspecified, uncomplicated
CPT/HCPCS: 99283

== ENCOUNTER 2019-01-03 18:37 | Emergency (ER) | payer SELFPAY ==
--- NOTE | 2019-01-03 20:23 | RADIOLOGY REPORT (SQ) ---
EXAM DESCRIPTION: XR HAND 3 OR MORE VIEWS COMPLETED DATE/TME: 01/03/2019 19:34 CLINICAL HISTORY: 28 years, Male, pain COMPARISON: Prior study from 12/15/2018 NUMBER OF VIEWS: Three TECHNIQUE: Frontal, oblique, and lateral radiographs of the left hand were obtained. LIMITATIONS: None. FINDINGS: Again visualized is a comminuted nondisplaced fracture involving the fifth proximal phalangeal shaft. No additional osseous anomalies are appreciated. IMPRESSION: Unchanged appearance of comminuted nondisplaced fracture involving the fifth proximal phalangeal shaft. No additional osseous anomalies. copyright 2010 [employer]- All Rights Reserved
[2019-01-03] MEDS ORDERED: ACETAMINOPHEN 325 MG TABLET PO ONE (20:58)
--- NOTE | 2019-01-03 23:05 | ER Document Report ---
ED Hand/Wrist Injury - General Chief Complaint: Hand Pain Stated Complaint: LEFT HAND PAIN Time Seen by Provider: 01/03/19 22:38 Primary Care Provider: [facility] ([facility] [Provider Group] - Follow up as needed TRAVEL OUTSIDE OF THE [place] IN LAST 30 DAYS: No - HPI Notes: Patient is a 28-year-old male presents to the emergency department with left fifth digit pain and left thumb numbness. Emergency department on December 15 and diagnosed with a comminuted nondisplaced fracture involving the fifth proximal phalangeal shaft. He has since been seen by you on a center for surgery and has another follow-up appointment next Thursday. Was placed into a splint during his first follow-up appointment at [facility], but has now removed it. States he removed the dressing because it became loose and not helping. Left hand currently wrapped in a very loose Basim bandage. Patient states he is having numbness to the top of his left thumb. Denies any new injury. Also complains of continued left fifth digit swelling. - Related Data Allergies/Adverse Reactions: No Known Allergies Allergy (Verified 01/03/19 18:45) Past Medical History - General Information source: Patient - Social History Smoking Status: Current Every Day Smoker Chew tobacco use (# tins/day): No Frequency of alcohol use: None Drug Abuse: None Family History: Reviewed & Not Pertinent, Arthritis, CAD, DM, Hyperlipidemia, Hypertension, Malignancy Patient has suicidal ideation: No Patient has homicidal ideation: No Pulmonary Medical History: Reports: Hx Asthma Renal/ Medical History: Denies: Hx Peritoneal Dialysis GI Medical History: Reports: Hx Diverticulitis Musculoskeletal Medical History: Reports Hx Musculoskeletal Trauma Skin Medical History: Reports Hx Cellulitis Psychiatric Medical History: Reports: Hx Attention Deficit Hyperactivity Disorder - Immunizations Immunizations up to date: Yes Hx Diphtheria, Pertussis, Tetanus Vaccination: Yes - 12/15/2018 Review of Systems - Review of Systems Constitutional: No symptoms reported EENT: No symptoms reported Cardiovascular: No symptoms reported Respiratory: No symptoms reported Gastrointestinal: No symptoms reported Genitourinary: No symptoms reported Male Genitourinary: No symptoms reported Musculoskeletal: See HPI Skin: No symptoms reported Hematologic/Lymphatic: No symptoms reported Neurological/Psychological: No symptoms reported Physical Exam - Vital signs Vitals: Temp Pulse Resp BP Pulse Ox 98.4 F 68 16 141/87 H 99 01/03/19 19:01 04/22/19 19:01 01/03/19 19:01 01/03/19 19:01 01/03/19 19:01 - Notes Notes: GENERAL: Well-appearing, well-nourished and in no acute distress. HEAD: Atraumatic, normocephalic. EYES: Pupils equal round and reactive to light, extraocular movements intact, sclera anicteric, conjunctiva are normal. ENT: TMs normal, nares patent, oropharynx clear without exudates. Moist mucous membranes. NECK: Normal range of motion, supple without lymphadenopathy or JVD. LUNGS: Breath sounds clear to auscultation bilaterally and equal. No wheezes rales or rhonchi. HEART: Regular rate and rhythm without murmurs, rubs or gallops. ABDOMEN: Soft, nontender, normoactive bowel sounds. No guarding, no rebound. No masses appreciated. EXTREMITIES: Normal range of motion, no pitting or edema. No clubbing or cyanosis. Minimal amount of swelling to left 5th digit - no obvious deformity or skin breakdown. + strong flexion and extension noted to left thumb, no obvious swelling/deformity, < 2 cap refill on all fingers. NEUROLOGICAL: Normal speech, normal gait. PSYCH: Normal mood, normal affect. SKIN: Warm, Dry, normal turgor, no rashes or lesions noted. Course - Re-evaluation Re-evalutation: 01/04/19 Discussed results of her repeat left hand x-ray that were obtained at this visit. Informed patient that when compared to the imaging from December 15, 2018 which was the day of his original injury there was unchanged appearance of the comminuted nondisplaced fracture. of the 5th proximal phalangeal shaft. No displacement or dislocation noted on x-ray. Patient does have full range of motion to left thumb. Patient to be placed in a left thumb spica splint and to follow-up with his Ortho as previously scheduled in 1 week. Please keep splint clean dry and intact. Elevate left extremity to aid in decrease of swelling. Return to the emergency department if fingers become pale, increased swelling, or any other concerning signs or symptoms. - Vital Signs Vital signs: Temp Pulse Resp BP Pulse Ox 98.1 F 97 16 128/84 H 97 01/04/19 00:12 01/04/19 00:12 01/04/19 00:12 01/04/19 00:12 01/04/19 00:12 Discharge - Discharge Clinical Impression: Phalanx, proximal fracture of finger Qualifiers: Encounter type: subsequent encounter Finger: little finger Fracture type: closed Fracture alignment: nondisplaced Laterality: left Fracture healing: with routine healing Qualified Code(s): S62.647D - Nondisplaced fracture of proximal phalanx of left little finger, subsequent encounter for fracture with routine healing Condition: Stable Disposition: HOME, SELF-CARE Additional Instructions: Today you were seen for continued left hand pain and swelling, and numbness to your thumb. Your xray showed a nondisplaced fracture involving the fifth proximal phalangeal shaft and no change from previous xray. The thumb did not reveal any abnormality on xray. We have placed you in a ulnar gutter splint, please keep this clean dry and intact until your follow-up appointment with [facility] for surgery next Thursday. Continue to elevate left upper extremity to help with swelling. Use Tylenol or ibuprofen for pain. Splint Precautions A splint has been placed. This will protect the area while healing begins. Your problem does NOT normally require a cast. It MUST, however, be held still! Keep the splint on ALL THE TIME until instructed to remove it by the doctor. As you begin to use the area, be careful. You shouldn't do anything which causes discomfort -- you may disturb the injury even with the splint in place. After the initial period of rest and elevation, if splint does not prevent pain when you move, come back. You may require placement of a different splint, or a cast. If there is unexpected severe pain, or numbness, discoloration, or swelling beyond the splint, you should return at once. If you feel that the splint has broken or become loose, come back. Referrals: [facility] ([facility]) [Provider Group] - Follow up as needed
[2019-01-04 00:13] VITALS: BP 128/84
== END 2019-01-04 00:16 | disposition home or self-care (01) ==
LOC: ER 18:37
DX: M79.642 Pain in left hand (principal); S62.647D Nondisplaced fracture of proximal phalanx of left little finger, subsequent encounter for fracture with routine healing; X58.XXXD Exposure to other specified factors, subsequent encounter; F17.200 Nicotine dependence, unspecified, uncomplicated
CPT/HCPCS: 99283

== ENCOUNTER 2019-05-03 22:39 | Emergency (ER) | payer SELFPAY | END 2019-05-04 01:04 | disposition left against medical advice (07) | LOC: ER 22:39 | DX: Z53.21 Procedure and treatment not carried out due to patient leaving prior to being seen by health care provider (principal) ==

== ENCOUNTER 2019-05-04 15:36 | Emergency (ER) | payer SELFPAY ==
[2019-05-04 15:52] VITALS: BP 129/81
[2019-05-04] MEDS ORDERED: CIPROFLOXACIN HCL/DEXAMETH OTIC DROP 7.5 ML AS ONE (16:01)
--- NOTE | 2019-05-04 16:04 | ER Document Report ---
HPI - HPI Time Seen by Provider: 05/04/19 15:57 Pain Level: 3 Notes: Patient is a 28-year-old male no significant past medical history who presents complaining of right ear pain and possible bloody discharge after he blew his nose yesterday. He has had congestion for the past couple days. He has not had any severe pain. He can still hear out of his ears without difficulty. No dizziness or feeling of fullness. Denies drug allergies. No other concerns or complaints. Denies any headache, fever, head injury, neck pain, changes in vision/speech/mentation/hearing, sore throat, chest pain, palpitations, syncope, cough, shortness of breath, wheeze, dyspnea, abdominal pain, nausea/vomiting/diarrhea, urinary retention, dysuria, hematuria, or rash. - ROS Systems Reviewed and Negative: Yes All other systems reviewed and negative - REPRODUCTIVE Reproductive: DENIES: : Past Medical History - Social History Smoking Status: Current Every Day Smoker Family History: Reviewed & Not Pertinent, Arthritis, CAD, DM, Hyperlipidemia, Hypertension, Malignancy Pulmonary Medical History: Reports: Hx Asthma Renal/ Medical History: Denies: Hx Peritoneal Dialysis GI Medical History: Reports: Hx Diverticulitis Musculoskeletal Medical History: Reports Hx Musculoskeletal Trauma Skin Medical History: Reports Hx Cellulitis Psychiatric Medical History: Reports: Hx Attention Deficit Hyperactivity Disorder - Immunizations Immunizations up to date: Yes Hx Diphtheria, Pertussis, Tetanus Vaccination: Yes - 12/15/2018 [facility] Provider Document - CONSTITUTIONAL Agree With Documented VS: Yes Notes: PHYSICAL EXAMINATION: GENERAL: Well-appearing, well-nourished and in no acute distress. A&Ox4. Answers questions appropriately. Moves comfortably w/o notable distress HEAD: Atraumatic, normocephalic. EYES: Pupils equal round and reactive to light, extraocular movements intact, sclera anicteric, conjunctiva are normal. ENT: Rt EAC tender, scant dried bloody discharge near the outer canal w/o significant swelling/occlusion. Lt EAC wnl. + Tenderness to tragus rt. No mastoid tenderness bilaterally. TM's intact b/l without erythema, fluid, or perforation. Nares patent and without discharge. oropharynx no erythema without exudates. No tonsilar hypertrophy without erythema or exudate. No palatine shift. Uvula midline. No tongue protrusion. No drooling, hoarseness, or airway compromise. Moist mucous membranes. No sinus tenderness. NECK: Normal range of motion, supple without lymphadenopathy. No rigidity/meningismus. LUNGS: Breath sounds clear to auscultation bilaterally and equal. No wheezes rales or rhonchi. No retractions HEART: Regular rate and rhythm without murmurs, rubs, gallops. NEUROLOGICAL: Normal speech, normal gait. PSYCH: Normal mood, normal affect. SKIN: Warm, Dry, normal turgor, no rashes or lesions noted. - INFECTION CONTROL TRAVEL OUTSIDE OF THE [place] IN LAST 30 DAYS: No Course - Re-evaluation Re-evalutation: 05/04/19 16:02 Patient is an afebrile, well-hydrated, 28-year-old male who presents with acute otitis externa of the right ear, mild. Vitals are acceptable without significant tachycardia, tachypnea, or hypoxia. PE is otherwise unremarkable. Patient is nontoxic-appearing and is tolerating p.o. without difficulty. No work-up warranted. Low suspicion for any sepsis, meningitis, severe dehydration, respiratory compromise, mastoiditis, perforation, or other systemic emergent condition at this time. Patient is aware that condition can change from initial presentation and he needs to monitor symptoms closely and seek medical attention with any acute changes. Ciprodex dispense provided. Recheck with your PCM in 3 to 5 days. Consider consult with ENT. Return to the ED with any other worsening/concerning symptoms. Patient is in agreement. - Vital Signs Vital signs: Temp Pulse Resp BP Pulse Ox 98.3 F 74 16 129/81 H 97 05/04/19 15:50 05/04/19 15:50 05/04/19 15:50 05/04/19 15:50 05/04/19 15:50 Discharge - Discharge Clinical Impression: Acute otitis externa of right ear Qualifiers: Otitis externa type: unspecified type Qualified Code(s): H60.501 - Unspecified acute noninfective otitis externa, right ear Condition: Stable Disposition: HOME, SELF-CARE Instructions: Use of Ear Drops ([facility]) Additional Instructions: Maintain adequate fluid intake Take meds as directed tylenol/ibuprofen as needed Avoid Q-tips in the ears over the counter cold medication as needed for symptoms F/u: with your PCM in 3-5 days for a recheck Consider consult with ENT Return to the ED with any fever, dizziness, tinnitus, headaches, worsening pain, chest pain, palpitations, syncope, neck pain/stiffness, shortness of breath, wheezing, drooling, trouble swallowing/breathing, abdominal pain, n/v/d, rash, or worsening/concerning symptoms otherwise. Forms: Elevated Blood Pressure, Smoking Cessation Education Referrals: DALE [facility] DO [ASSOCIATE] - Follow up as needed
== END 2019-05-04 16:15 | disposition home or self-care (01) ==
LOC: ER 15:36
DX: H60.501 Unspecified acute noninfective otitis externa, right ear (principal); H92.01 Otalgia, right ear; H92.21 Otorrhagia, right ear; F17.200 Nicotine dependence, unspecified, uncomplicated; J45.909 Unspecified asthma, uncomplicated
CPT/HCPCS: 99282; J3490

== ENCOUNTER 2019-09-15 11:40 | Emergency (ER) | payer SELFPAY ==
--- NOTE | 2019-09-15 12:30 | ER Document Report ---
HPI - HPI Time Seen by Provider: 09/15/19 12:11 Pain Level: 2 Context: 28-year-old healthy male smoker presents to the emergency department with chief complaint of cough x1 month. Patient states that he has had a persistent cough, hot and cold flashes, and sore throat secondary to cough. Patient denies any chest pain or chest wall pain, denies nausea or vomiting, denies dizziness or lightheadedness, denies dyspnea on exertion. Patient denies headache or sinus pressure, denies ear pain, denies neck stiffness or dysphagia. - REPRODUCTIVE Reproductive: DENIES: : Past Medical History - Social History Smoking Status: Current Every Day Smoker Chew tobacco use (# tins/day): No Frequency of alcohol use: None Drug Abuse: Marijuana Family History: Reviewed & Not Pertinent, Arthritis, CAD, DM, Hyperlipidemia, Hypertension, Malignancy Patient has suicidal ideation: No Patient has homicidal ideation: No Pulmonary Medical History: Reports: Hx Asthma Renal/ Medical History: Denies: Hx Peritoneal Dialysis GI Medical History: Reports: Hx Diverticulitis Musculoskeletal Medical History: Reports Hx Musculoskeletal Trauma Skin Medical History: Reports Hx Cellulitis Psychiatric Medical History: Reports: Hx Attention Deficit Hyperactivity Disorder - Immunizations Immunizations up to date: Yes Hx Diphtheria, Pertussis, Tetanus Vaccination: Yes - 12/15/2018 [facility] Provider Document - CONSTITUTIONAL Notes: PHYSICAL EXAMINATION: Reviewed vital signs and charting by RN GENERAL: Alert, interacts well. No acute distress. HEAD: Normocephalic, atraumatic. EYES: Pupils equal and round. Extraocular movements intact. ENT: Oral mucosa moist, tongue midline. NECK: Full range of motion. Trachea midline. LUNGS: Clear to auscultation bilaterally, expiratory wheezes heard in right lower lobe, no rales, no rhonchi. No respiratory distress. HEART: Regular rate and rhythm. No murmur ABDOMEN: soft, non-tender. No distention. Bowel sounds present EXTREMITIES: Moves all 4 extremities spontaneously. No edema, No cyanosis. PSYCH: Normal affect, normal mood. SKIN: Warm, dry, normal turgor. No rashes or lesions noted. - INFECTION CONTROL TRAVEL OUTSIDE OF THE [place] IN LAST 30 DAYS: No Course - Re-evaluation Re-evalutation: 09/15/19 13:13 Presentation is most consistent with a viral upper respiratory infection. Patient is overall well appearance, vitals within normal limits, well-hydrated. Patient denies any headache, neck pain, and has no evidence of meningismus on examination. Lungs are clear bilaterally. No evidence of respiratory distress. Based on clinical exam and history, I do not suspect an acute pneumonia, meningitis, strep pharyngitis, or an acute encephalitis. Chest x-ray negative for any pulmonary infiltrate or concern for pneumonia. Will discharge patient with return precautions and followup recommendations. They are in agreement this plan have verbalized understanding return precautions. - Vital Signs Vital signs: Temp Pulse Resp BP Pulse Ox 98.3 F 97 16 110/69 96 09/15/19 11:56 09/15/19 11:56 09/15/19 11:56 09/15/19 11:56 09/15/19 11:56 Discharge - Discharge Clinical Impression: Upper respiratory infection Qualifiers: URI type: unspecified URI Qualified Code(s): J06.9 - Acute upper respiratory infection, unspecified Condition: Good Disposition: HOME, SELF-CARE Additional Instructions: You have been seen and treated in the emergency department for an upper respiratory infection. These are typically caused by viruses and do not respond to antibiotics. Please make sure you using any prescription medications as prescribed. Please also continue to take [id number] Tylenol 1000 mg every 6 hours and Motrin 600 mg every 6 hours with food and/your milk for your generalized body aches, fever. Please stay well-hydrated and get plenty of rest. Please follow-up with your primary care provider in the next 24 to 48 hours. Please return to the emergency room should you have any other concerning symptoms.
--- NOTE | 2019-09-15 13:06 | RADIOLOGY REPORT (SQ) ---
EXAM DESCRIPTION: CHEST 2 VIEWS COMPLETED DATE/TIME: 09/15/2019 12:51 pm REASON FOR STUDY: cough x 1 month COMPARISON: 09/26/2015 EXAM PARAMETERS: NUMBER OF VIEWS: two views TECHNIQUE: Digital Frontal and Lateral radiographic views of the chest acquired. RADIATION DOSE: NA LIMITATIONS: none FINDINGS: LUNGS AND PLEURA: No opacities, masses or pneumothorax. No pleural effusion. MEDIASTINUM AND HILAR STRUCTURES: No masses or contour abnormalities. HEART AND VASCULAR STRUCTURES: Heart normal size. No evidence for failure. BONES: No acute findings. HARDWARE: None in the chest. OTHER: No other significant finding. IMPRESSION: NO ACUTE RADIOGRAPHIC FINDING IN THE CHEST. TECHNICAL DOCUMENTATION: JOB ID: [id number] [employer]- All Rights Reserved Reading location - IP/workstation name: [email or web address]
[2019-09-15 13:52] VITALS: BP 127/87
== END 2019-09-15 13:53 | disposition home or self-care (01) ==
LOC: ER 11:40
DX: J06.9 Acute upper respiratory infection, unspecified (principal); R05 Cough; J02.9 Acute pharyngitis, unspecified; F17.200 Nicotine dependence, unspecified, uncomplicated; J45.909 Unspecified asthma, uncomplicated
CPT/HCPCS: 71046; 99283

== ENCOUNTER 2020-07-19 19:09 | Emergency (ER) | payer OTHER ==
[2020-07-19 19:18] VITALS: BP 125/86
[2020-07-19] MEDS ORDERED: DIPH/PERTUSS(ACELL)/TETANUS VAC/PF 0.5 ML SYR (>=10YO) IM ONE (20:30)
[2020-07-19] MEDS ORDERED: LIDOCAINE 1% INJ-PF (10 MG/ML) 30 ML SDV INJ ONE (20:31)
--- NOTE | 2020-07-19 20:34 | ER Document Report ---
ED Medical Screen (RME) - General Chief Complaint: Finger Injury Stated Complaint: FINGER CUT Time Seen by Provider: 07/19/20 20:30 Mode of Arrival: Ambulatory Information source: Patient Notes: Laceration to the left index finger which the patient caught on a piece of duct material. Last tetanus unknown. General exam: No acute distress Musculoskeletal laceration to the palmar surface of the distal left index finger. No bleeding I have greeted and performed a rapid initial assessment of this patient. A comprehensive ED assessment and evaluation of the patient, analysis of test results and completion of the medical decision making process will be conducted by additional ED providers. TRAVEL OUTSIDE OF THE [place] IN LAST 30 DAYS: No - Related Data Allergies/Adverse Reactions: No Known Allergies Allergy (Verified 09/15/19 12:07) Past Medical History - Social History Frequency of alcohol use: None Drug Abuse: None Pulmonary Medical History: Reports: Hx Asthma Renal/ Medical History: Denies: Hx Peritoneal Dialysis GI Medical History: Reports: Hx Diverticulitis Musculoskeltal Medical History: Reports Hx Musculoskeletal Trauma Skin Medical History: Reports Hx Cellulitis Psychiatric Medical History: Reports: Hx Attention Deficit Hyperactivity Disorder - Immunizations Immunizations up to date: Yes Hx Diphtheria, Pertussis, Tetanus Vaccination: Yes - 12/15/2018 Physical Exam - Vital signs Vitals: Temp Pulse Resp BP Pulse Ox 98.5 F 84 18 125/86 H 98 07/19/20 19:14 07/19/20 19:14 07/19/20 19:14 07/19/20 19:14 07/19/20 19:14 Course - Vital Signs Vital signs: Temp Pulse Resp BP Pulse Ox 98.5 F 84 18 125/86 H 98 07/19/20 19:14 07/19/20 19:14 07/19/20 19:14 07/19/20 19:14 07/19/20 19:14
--- NOTE | 2020-07-19 21:26 | RADIOLOGY REPORT (SQ) ---
EXAM DESCRIPTION: XR FINGERS COMPLETED DATE/TME: 07/19/2020 20:30 CLINICAL HISTORY: 29 years, Male, left index fingertip lac COMPARISON: Study from 01/03/2019. TECHNIQUE: AP view of the left hand and additional two views of the left index finger. FINDINGS: Minimal cortical discontinuity in the distal tuft of the second finger may represent a nondisplaced fracture. There is a faint mildly high density in the adjacent soft tissues presumably soft tissue injury. IMPRESSION: Suspected subtle bone and soft tissue injury of the distal tuft of the second left finger
[2020-07-19] MEDS ORDERED: LIDOCAINE 1% INJ-PF (10 MG/ML) 30 ML SDV ONE (23:09)
--- NOTE | 2020-07-19 23:21 | ER Document Report ---
HPI - HPI Time Seen by Provider: 07/19/20 20:30 Pain Level: 4 Notes: 29-year-old male patient presenting to the emergency department chief complaint of laceration to his left index finger. Patient reports this happened at work at approximately 2:00 this afternoon. He states he was working with a piece of metal when the metal cut his finger. He was unsure when his last tetanus was however the triage provider ordered this and it has been updated. - ROS Systems Reviewed and Negative: Yes All other systems reviewed and negative - REPRODUCTIVE Reproductive: DENIES: : - DERM Skin Problems: Laceration Past Medical History - General Information source: Patient - Social History Smoking Status: Current Every Day Smoker Frequency of alcohol use: None Drug Abuse: None Family History: Reviewed & Not Pertinent, Arthritis, CAD, DM, Hyperlipidemia, Hypertension, Malignancy Patient has homicidal ideation: No Pulmonary Medical History: Reports: Hx Asthma Renal/ Medical History: Denies: Hx Peritoneal Dialysis GI Medical History: Reports: Hx Diverticulitis Musculoskeletal Medical History: Reports Hx Musculoskeletal Trauma Skin Medical History: Reports Hx Cellulitis Psychiatric Medical History: Reports: Hx Attention Deficit Hyperactivity Disorder - Immunizations Immunizations up to date: Yes Hx Diphtheria, Pertussis, Tetanus Vaccination: Yes - 12/15/2018 [facility] Provider Document - CONSTITUTIONAL Notes: PHYSICAL EXAMINATION: GENERAL: Well-appearing, well-nourished and in no acute distress. HEAD: Atraumatic, normocephalic. EYES: Pupils equal round extraocular movements intact, conjunctiva are normal. ENT: Nares patent NECK: Normal range of motion LUNGS: No respiratory distress Musculoskeletal: Normal flexion and extension of all digits on the left hand. Cap refill less than 3 seconds, normal motor and sensation distal to injury. Strong radial pulse. NEUROLOGICAL: Normal speech, normal gait. PSYCH: Normal mood, normal affect. SKIN: 2 cm laceration noted to pad of left second digit, approximates well, no active bleeding noted. - INFECTION CONTROL TRAVEL OUTSIDE OF THE [place] IN LAST 30 DAYS: No Course - Re-evaluation Re-evalutation: Laceration repaired under sterile technique, patient tolerated well, dressing applied. See procedure note. - Vital Signs Vital signs: Temp Pulse Resp BP Pulse Ox 98.5 F 84 18 125/86 H 98 07/19/20 19:14 07/19/20 19:14 07/19/20 19:14 07/19/20 19:14 07/19/20 19:14 Procedures - Laceration/Wound Repair Left index finger Wound length (cm): 2 Wound's Depth, Shape: Superficial Laceration pre-procedure: Sterile PPE donned Anesthetic type: 1% Lidocaine Wound explored: Clean Wound Debrided: Minimal Wound Repaired With: Sutures Suture Size/Type: 4:0 Number of Sutures: 4 Layer Closure?: No Post-procedure wound care: Sterile dressing applied Post-procedure NV exam normal: Yes Complications: No Discharge - Discharge Clinical Impression: Laceration Condition: Stable Disposition: HOME, SELF-CARE Additional Instructions: Laceration Care Your laceration has been sutured to keep the skin edges aligned during healing. The time of suture removal depends on the nature and location of your cut. Please follow the care instructions the doctor has outlined for you and return for further care, according to the schedule you've been given. Keep the wound and dressing clean. Unless you were told otherwise, you may shower daily, blotting the wound dry with a clean, unused towel. At other times, If the dressing gets wet or blood soaked, remove it and blot the wound dry, then reapply a new dressing. Unless you were instructed otherwise, dressings should be changed at least daily. If any signs of infection occur (swelling, redness, increasing tenderness, red streaks, tender lumps in the armpit or groin above the laceration, or fever), see the doctor immediately. Please return to the emergency department or your primary care provider in 8-10 days for suture removal. Please return earlier if you develop any signs of infection such as increased redness, swelling, foul-smelling drainage or fever. Prescriptions: Cephalexin [Keflex] 500 mg PO BID #14 capsule
[2020-07-19] MEDS ORDERED: IBUPROFEN 800 MG TABLET PO ONE (23:56)
[2020-07-19] MEDS ORDERED: ACETAMINOPHEN 325 MG TABLET PO ONE (23:56)
== END 2020-07-20 00:12 | disposition home or self-care (01) ==
LOC: ER 19:09
PROC: 0HQGXZZ Repair Left Hand Skin, External Approach (ICD-10-PCS; principal; 2020-07-19)
DX: S61.211A Laceration without foreign body of left index finger without damage to nail, initial encounter (principal); W45.8XXA Other foreign body or object entering through skin, initial encounter; Y99.0 Civilian activity done for income or pay; F17.200 Nicotine dependence, unspecified, uncomplicated; J45.909 Unspecified asthma, uncomplicated
CPT/HCPCS: 99283; 90471; 73140; 90715; 12001; J3490

== ENCOUNTER 2020-07-28 10:04 | Emergency (ER) | payer OTHER ==
[2020-07-28 10:20] VITALS: BP 124/77
--- NOTE | 2020-07-28 10:43 | ER Document Report ---
ED Suture/Wound Recheck - General Chief Complaint: Suture Removal Stated Complaint: SUTURE REMOVAL Time Seen by Provider: 07/28/20 10:35 Mode of Arrival: Ambulatory Information source: Patient Notes: 29-year-old male presented to ED for suture removal from his left index finger 3 sutures. They were well healed well granulated. No redness no drainage no signs of any infection. These will removed his finger will be dressed with bacitracin and a Band-Aid he has been given instructions for care of the wound and he will be discharged. Constitutional: Negative for fever. HENT: Negative for sore throat. Eyes: Negative for visual changes. Cardiovascular: Negative for chest pain. Respiratory: Negative for shortness of breath. Gastrointestinal: Negative for abdominal pain, vomiting or diarrhea. Genitourinary: Negative for dysuria. Musculoskeletal: Negative for back pain. Skin: 3 sutures need to be removed no signs of infection. Neurological: Negative for headaches, weakness or numbness. 10 point ROS negative except as marked above and in HPI. PHYSICAL EXAMINATION: GENERAL: Well-appearing, well-nourished and in no acute distress. HEAD: Atraumatic, normocephalic. EYES: Pupils equal round extraocular movements intact, conjunctiva are normal. ENT: Nares patent NECK: Normal range of motion LUNGS: No respiratory distress Musculoskeletal: Normal range of motion NEUROLOGICAL: Normal speech, normal gait. PSYCH: Normal mood, normal affect. SKIN: 3 sutures in the left index finger well-healed well granulated no redness drainage or any signs or symptoms of an infection or inflammation. TRAVEL OUTSIDE OF THE [place] IN LAST 30 DAYS: No - HPI Previous ED treatment: Laceration repair Quality of pain: No pain Severity: None Pain Level: Denies Context: Injury Symptoms since procedure: No complaints Exacerbated by: Denies Relieved by: Denies - Related Data Allergies/Adverse Reactions: No Known Allergies Allergy (Verified 09/15/19 12:07) Past Medical History - General Information source: Patient - Social History Smoking Status: Current Every Day Smoker Cigarette use (# per day): Yes - Pack per day Smoking Education Provided: Yes - 3 minutes Frequency of alcohol use: None Drug Abuse: None Family History: Reviewed & Not Pertinent, Arthritis, CAD, DM, Hyperlipidemia, Hypertension, Malignancy Patient has suicidal ideation: No Patient has homicidal ideation: No - Past Medical History Cardiac Medical History: Reports: None Pulmonary Medical History: Reports: Hx Asthma EENT Medical History: Reports: None Neurological Medical History: Reports: None Endocrine Medical History: Reports: None Renal/ Medical History: Reports: None Malignancy Medical History: Reports None GI Medical History: Reports: Hx Diverticulitis Musculoskeletal Medical History: Reports Hx Musculoskeletal Trauma Skin Medical History: Reports Hx Cellulitis Psychiatric Medical History: Reports: Hx Attention Deficit Hyperactivity Disorder Traumatic Medical History: Reports: None Infectious Medical History: Reports: None Surgical Hx: Negative Past Surgical History: Reports: None - Immunizations Immunizations up to date: Yes Hx Diphtheria, Pertussis, Tetanus Vaccination: Yes - 12/15/2018 Physical Exam - Vital signs Vitals: Temp Pulse Resp BP Pulse Ox 98.7 F 89 16 124/77 97 07/28/20 10:18 07/28/20 10:18 07/28/20 10:18 07/28/20 10:18 07/28/20 10:18 Course - Vital Signs Vital signs: Temp Pulse Resp BP Pulse Ox 98.7 F 89 16 124/77 97 07/28/20 10:18 07/28/20 10:18 07/28/20 10:18 07/28/20 10:18 07/28/20 10:18 Discharge - Discharge Clinical Impression: Visit for suture removal Condition: Stable Disposition: HOME, SELF-CARE Instructions: Suture Removal Additional Instructions: Antibiotic Ointment Protection Your wounds are such that dressing them is not practical or optional. After cleansing, you should apply a thin coating of antibiotic ointment (Bacitracin, not Neosporin) to the wounds at least three times daily. This lessens infection risk, and may decrease the amount of scarring. Use a q-tip or dull butter knife, not your finger, to apply this ointment. Any debris or ooze which builds up in the ointment should be gently rubbed off with a sterile gauze pad. Harder crusting may need to be gently scrubbed off with a clean wash cloth with soap and warm water, perhaps applying a warm, wet wash cloth to the wound for ten minutes first. Development of redness, severe itching, or blistering may mean allergy to the ointment. See the doctor. Acetaminophen Acetaminophen may be taken for pain relief or fever control. It's much safer than aspirin, offering a wider range of "safe" dosages. It is safe during . Some brand names are Tylenol, Panadol, Datril, Anacin 3, Tempra, and Liquiprin. Acetaminophen can be repeated every four hours. The following are maximum recommended dosages: WEIGHT Dose Drops Elixir Chewable(80mg) (LBS.) drprs=droppers tsp=teaspoon 6 40 mg .4 ml (1/2) 6-11 80 mg .8 ml (full) 1/2 tsp 1 tab 12-16 120 mg 1 1/2 drprs 3/4 tsp 1 1/2 tabs 17-23 160 mg 2 drprs 1 tsp 2 tabs 24-30 240 mg 3 drprs 1 1/2 tsp 3 tabs 30-35 320 mg 2 tsp 4 tabs 36-41 360 mg 2 1/4 tsp 4 1/2 tabs 42-47 400 mg 2 1/2 tsp 5 tabs 48-53 480 mg 3 tsp 6 tabs 54-59 520 mg 3 1/4 tsp 6 1/2 tabs 60-64 560 mg 3 1/2 tsp 7 tabs 65-70 600 mg 3 3/4 tsp 7 1/2 tabs 71-76 640 mg 4 tsp 8 tabs 77-82 720 mg 4 1/2 tsp 9 tabs 83-88 800 mg 5 tsp 10 tabs >89 pounds or adults 650 mg to 900 mg Acetaminophen can be repeated every four hours. Maximum daily dose not to exceed 4000 mg. These maximum recommended dosages are slightly higher than the dosages written on the product container, but these dosages are very safe and well below the toxic dosage for acetaminophen. Ibuprofen Ibuprofen is an excellent, safe drug for pain control. In addition, it has potent antiinflammatory effects which are beneficial, especially in the treatment of injuries, arthritis, or tendonitis. It's best to take ibuprofen with food. Persons with ulcer disease or allergy to aspirin should notify their physician of this before taking ibuprofen. Take the medication exactly as prescribed. Don't take additional doses unless instructed to do so by your doctor. If you develop wheezing, shortness of breath, hives, faintness, stomach pain, vomiting, or dark black stools, return for re-evaluation at once. FOLLOW-UP CARE: If you have been referred to a physician for follow-up care, call the physicians office for an appointment as you were instructed or within the next two days. If you experience worsening or a significant change in your symptoms, notify the physician immediately or return to the Emergency Department at any time for re-evaluation. Forms: Smoking Cessation Education Referrals: [facility] [Provider Group] - Follow up as needed [facility] [Provider Group] - Follow up as needed [facility] [Provider Group] - Follow up as needed
== END 2020-07-28 10:44 | disposition home or self-care (01) ==
LOC: ER 10:04
DX: S61.211D Laceration without foreign body of left index finger without damage to nail, subsequent encounter (principal); X58.XXXD Exposure to other specified factors, subsequent encounter; F17.210 Nicotine dependence, cigarettes, uncomplicated; J45.909 Unspecified asthma, uncomplicated
CPT/HCPCS: 99281